=== PATIENT | female | born 1960 | race Caucasian/White ===

== ENCOUNTER 2017-11-17 18:14 | Emergency (ER) | payer BC ==
[2017-11-17 18:35] VITALS: BP 137/67
--- NOTE | 2017-11-17 20:36 | ER Document Report ---
ED Extremity Problem, Lower - General Chief Complaint: Foot Injury Stated Complaint: OPEN WOUND ON FOOT Time Seen by Provider: 11/17/17 20:16 Mode of Arrival: Ambulatory Information source: Patient Notes: 57-year-old female presented to ED for diabetic ulcer to the right foot. She is being treated for this foot by her staple cutter. She saw a staple cutter on 11 05 and had a follow-up appointment on . She states that the staple cutter told her to go back to work and when she did she developed a new blister and it looked like the wound got bigger. Patient was alert oriented respirations are regular and unlabored speaking in full sentences and was able to walk on this foot. TRAVEL OUTSIDE OF THE [place] IN LAST 30 DAYS: No - HPI Patient complains to provider of: Pain Location: Foot - Right Onset/Duration: Gradual Quality of pain: Sharp Severity: Moderate Pain Level: 3 Context: Other - Diabetic ulcer Recent injury: No Associated symptoms: Painful ambulation Exacerbated by: Walking Relieved by: Elevation, Rest, Other - Treatment as per prescribed by her staple cutter - Related Data Allergies/Adverse Reactions: morphine [Morphine] Allergy (Severe, Verified 11/17/17 18:19) Anaphylaxis propoxyphene napsylate [From Darvocet-N 100] Allergy (Severe, Verified 11/17/17 18:19) rash, hard to arouse propoxyphene HCl [From Darvon] Allergy (Verified 11/17/17 18:19) Past Medical History - General Information source: Patient - Social History Smoking Status: Unknown if Ever Smoked Cigarette use (# per day): No Chew tobacco use (# tins/day): No Smoking Education Provided: No Frequency of alcohol use: None Drug Abuse: None Occupation: Laboratory Lives with: Family Family History: Reviewed & Not Pertinent Patient has suicidal ideation: No Patient has homicidal ideation: No - Past Medical History Cardiac Medical History: Reports: None Pulmonary Medical History: Reports: None EENT Medical History: Reports: None Neurological Medical History: Reports: Other - Diabetic neuropathy Endocrine Medical History: Reports: Hx Diabetes Mellitus Type 2 Renal/ Medical History: Reports: None Malignancy Medical History: Reports: None GI Medical History: Reports: None Musculoskeletal Medical History: Reports Hx Arthritis - left hand, Reports Hx Musculoskeletal Trauma Skin Medical History: Reports None Psychiatric Medical History: Reports: None Traumatic Medical History: Reports: Hx Spine Fracture Infectious Medical History: Reports: None Past Surgical History: Reports: Hx Orthopedic Surgery - Carpal tunnel bilateral , Hx Tubal Ligation - Immunizations Hx Diphtheria, Pertussis, Tetanus Vaccination: Yes Review of Systems - Review of Systems Constitutional: No symptoms reported EENT: No symptoms reported Cardiovascular: No symptoms reported Respiratory: No symptoms reported Gastrointestinal: No symptoms reported Genitourinary: No symptoms reported Female Genitourinary: No symptoms reported Musculoskeletal: No symptoms reported Skin: Other - Well granulated diabetic ulcer to the right plantar surface of the foot Hematologic/Lymphatic: No symptoms reported Neurological/Psychological: No symptoms reported Physical Exam - Vital signs Vitals: Temp Pulse Resp BP Pulse Ox 98.7 F 85 18 137/67 H 97 11/17/17 18:34 11/17/17 18:34 11/17/17 18:34 11/17/17 18:34 11/17/17 18:34 Interpretation: Normal - General General appearance: Appears well, Alert - HEENT Head: Normocephalic, Atraumatic Eyes: Normal Pupils: PERRL - Respiratory Respiratory status: No respiratory distress Chest status: Nontender Breath sounds: Normal Chest palpation: Normal - Cardiovascular Rhythm: Regular Heart sounds: Normal auscultation Murmur: No - Abdominal Inspection: Normal Distension: No distension Bowel sounds: Normal Tenderness: Nontender Organomegaly: No organomegaly - Back Back: Normal, Nontender - Extremities General upper extremity: Normal inspection, Nontender, Normal color, Normal ROM , Normal temperature General lower extremity: Normal ROM, Normal temperature, Normal weight bearing. No: George's sign Foot: Tender, No evidence of FB, Other - Well granulated diabetic ulcer to the plantar surface of the right foot front pad - Neurological Neuro grossly intact: Yes Cognition: Normal Orientation: AAOx4 [place] Coma Scale Eye Opening: Spontaneous Ar[place] Coma Scale Verbal: Oriented [place] Coma Scale Motor: Obeys Commands [place] Coma Scale Total: 15 Speech: Normal Motor strength normal: LUE, RUE, LLE, RLE Sensory: Normal - Psychological Associated symptoms: Normal affect, Normal mood - Skin Skin Temperature: Warm Skin Moisture: Dry Skin Color: Normal Location of irregularity: Extremities - We will granulated diabetic ulcer to the front pad of the plantar surface of the right foot. No signs or symptoms of infection at this time Course - Re-evaluation Re-evalutation: 11/18/17 02:59 Patient was instructed to continue with treatment as prescribed by staple cutter. Patient was put off of work until Sunday and she has a follow-up appointment with her staple cutter on Sunday. Patient was given a new prescription for the Bactroban to continue her treatments to the foot. She states she has some more Bactroban coming by mail order but does not have any more at this time. - Vital Signs Vital signs: Temp Pulse Resp BP Pulse Ox 98.7 F 85 18 137/67 H 97 11/17/17 18:34 11/17/17 18:34 11/17/17 18:34 11/17/17 18:34 11/17/17 18:34 Discharge - Discharge Clinical Impression: diabetic ulcer right plantar surface foot Condition: Stable Disposition: HOME, SELF-CARE Additional Instructions: You is seen today for a diabetic ulcer to the ball of your right foot. You state this is been being treated by a staple cutter. The wound does not look an infected at this time but it does need to continue being treated as prescribed. You need to stay off of the foot is much as possible as this ulcer is on the bottom of your foot. I have written you a note to be off work until Sunday as you state you have a follow-up appointment with your staple cutter on Sunday. I will write you another prescription for the Bactroban as you do not have any to use until yours comes by mail prescription. Please keep your appointment with your staple cutter as scheduled. FOLLOW-UP CARE: If you have been referred to a physician for follow-up care, call the physician s office for an appointment as you were instructed or within the next two days. If you experience worsening or a significant change in your symptoms, notify the physician immediately or return to the Emergency Department at any time for re-evaluation. Prescriptions: Mupirocin [Bactroban 2% Ointment 22 gm] 22 applic TP TID #1 tube Forms: Elevated Blood Pressure, Return to Work Referrals: SHAVONNE SCHMIDT MD [Primary Care Provider] - Follow up as needed
== END 2017-11-17 20:47 | disposition home or self-care (01) ==
LOC: ER 18:14
DX: E11.621 Type 2 diabetes mellitus with foot ulcer (principal); Z98.51 Tubal ligation status
CPT/HCPCS: 99282